=== PATIENT | male | born 1950 | race Caucasian/White ===

== ENCOUNTER 2018-01-26 10:09 | Inpatient (IN) | payer MEDICARE, OTHER ==
[~2018-01-26] VITALS: Ht 188 cm; Wt 140.7 kg
--- NOTE | ~2018-01-26 | 2DMMODE ---
[facility] [address] [place] [address] 2 D/M-MODE ECHOCARDIOGRAM Name: CONTRERAS FIERRO Room #: 210-P ADM IN M.R.#: [id number] Admission: 01/26/18 Attend Phys: Corwin Davis MD Discharge: Date of : 46 Date of Service: 01/27/18 1154 Report #: [id number] THIS REPORT FOR: //name// APPROVED REPORT Study performed: 01/27/2018 08:26:25 EXAM: Comprehensive 2D, Doppler, and color-flow Echocardiogram Patient Location: Bedside Room #: 210 Status: routine BSA: 2.53 HR: 285 bpm BP: 122/72 mmHg Rhythm: Atrial Fibrillation Other Information Study Quality: Technically Limited Indications COPD Atrial Fibrillation Chest Pain Hx. CVA, HTN, stroke Echo Enhancing Agent Indication: Hx 2D Dimensions RVDd: 40.43 mm IVSd: 18.38 (7-11mm) LVOT Diam: 26.01 (18-24mm) LVDd: 41.67 mm PWd: 17.76 (7-11mm) Ascending Ao: 37.64 (22-36mm) LVDs: 30.99 (25-40mm) Aortic Root: 41.25 mm IVC: 28.00 mm Volumes Left Atrial Volume (Systole) Single Plane 4CH: 88.30 mL Single Plane 2CH: 42.39 mL Aortic Valve AoV Peak Bronson.: 1.79 m/s AO Peak Gr.: 12.86 mmHg LVOT Max P.20 mmHg LVOT Max V: 1.02 m/s HANNAH Vmax: 3.03 cm2 [facility] [address] [place] [address] 2 D/M-MODE ECHOCARDIOGRAM Name: CONTRERAS FIERRO Room #: 210-P ADM IN .R.#: [id number] Admission: 01/26/18 Attend Phys: Corwin Davis MD Discharge: Date of : 46 Date of Service: 01/27/18 1154 Report #: [id number] Mitral Valve E/A Ratio: 1.0 MV Decel. Time: 796.08 ms MV E Max Bronson.: 0.85 m/s MV A Bronson.: 0.84 m/s MV PHT: 230.86 ms IVRT: 77.85 ms Pulmonary Valve PV Peak Bronson.: 1.00 m/s PV Peak Gr.: 3.99 mmHg Tricuspid Valve TR Peak Bronson.: 2.41 m/s RAP Estimate: 10.00 mmHg TR Peak Gr.: 23.15 mmHg PA Pressure: 33.00 mmHg Left Ventricle The left ventricle is normal size. Moderate to severe concentric left ventricular hypertrophy. The left ventricular systolic function is normal. The left ventricular ejection fraction is within the normal range. LVEF is 55-60%. This study is not technically sufficient to allow evaluation of the LV diastolic function due to atrial fibrillation. Right Ventricle The right ventricle is normal size. The right ventricular systolic function is normal. Atria The left atrium size is normal. The right atrium size is normal. Aortic Valve Aortic valve is calcified. No aortic regurgitation is seen. There is no aortic valvular stenosis. Mitral Valve The mitral valve is normal in structure. Trace mitral regurgitation. No evidence of mitral valve stenosis. Tricuspid Valve The tricuspid valve is normal in structure. Mild to moderate tricuspid regurgitation. Estimated PAP of 33 mmHg. Pulmonic Valve [facility] [address] [place] [address] 2 D/M-MODE ECHOCARDIOGRAM Name: CONTRERAS FIERRO Room #: 210-P ADM IN M.R.#: [id number] Admission: 01/26/18 Attend Phys: Corwin Davis MD Discharge: Date of : 46 Date of Service: 01/27/18 1154 Report #: [id number] Pulmonic valve is not well visualized. Trace pulmonic regurgitation. Great Vessels Aortic root is dilated. IVC is dilated and collapses >50% with inspiration. <Conclusion> The left ventricle is normal size. LVEF is 55-60%. Aortic valve is calcified. The tricuspid valve is normal in structure. Mild to moderate tricuspid regurgitation. Estimated PAP of 33 mmHg. The mitral valve is normal in structure. Trace mitral regurgitation. Pulmonic valve is not well visualized. Trace pulmonic regurgitation. <ELECTRONICALLY SIGNED> By: Filipe Deluca MD 01/27/18 1154 1154 1154 Filipe Deluca MD /INF
--- NOTE | ~2018-01-26 | EKG ---
[address] [address] ELECTROCARDIOGRAM REPORT Name: CONTRERAS FIERRO Room #: 210-P ADM IN M.R.#: [id number] Admission: 01/26/18 Attend Phys: Corwin Davis MD Discharge: Date of : 46 Report #: [id number] THIS REPORT FOR: //name// [facility] Test Date: 2018-01-27 Test Time: 08:08:38 Pat Name: CONTRERAS FIERRO Department: Room: 210 P Gender: M Engineer/Conductor: EJ : 1950 Requested By: Corwin Davis Order Number: [id number] MD: Michael Cabello Measurements Intervals [place] Rate: 84 P: [place]: QRS: 31 QRSD: 104 T: 55 QT: 405 QTc: 479 Interpretive Statements Atrial fibrillation Nonspecific T wave abnormality No previous ECG available for comparison Electronically Signed On 01-27-2018 9:03:48 CDT by Michael Cabello [email or web address] <ELECTRONICALLY SIGNED> By: Michael Cabello MD, [facility] 01/27/18 0903 [id number] [id number] Michael Cabello MD, FAC /EPI
--- NOTE | ~2018-01-26 | EKG ---
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
[2018-01-26 10:11] VITALS: BP 122/88
[2018-01-26 11:11] LABS: ABSOLUTE NEUTROPHILS 5.9 thou/uL (1.4-8.2); BASOPHILS 0.5 % (0.0-2.0); EOSINOPHILS 1.4 % (0.0-3.0); HEMATOCRIT 34.8 % (42.0-52.0); HEMOGLOBIN 11.3 gm/dL (14.0-18.0); LYMPHOCYTES 13.9 % (24.0-44.0); MCH 26.8 pg (26.0-34.0); MCHC 32.6 g/dL (28.0-37.0); MCV 82.2 fL (80.0-100.0); PLATELET COUNT 215 thou/uL (150-400); POLYS 75.2 % (36.0-66.0); RBC 4.23 mil/uL (4.50-6.00); RDW 18.1 % (10.5-14.5); WBC 7.9 thou/uL (4.0-11.0)
[2018-01-26 11:18] LABS: ANION GAP 6 mmol/L (7-16); BUN 13 mg/dL (7-18); CALCIUM 9.1 mg/dL (8.5-10.1); CHLORIDE 104 mmol/L (98-107); CO2 30 mmol/L (21-32); CREATININE 0.7 mg/dL (0.7-1.3); GLUCOSE 128 mg/dL (74-106); POTASSIUM 3.5 mmol/L (3.5-5.1); SODIUM 140 mmol/L (136-145)
[2018-01-26 11:27] LABS: TROPONIN-I <0.06 ng/mL (<0.06)
[2018-01-26 12:13] LABS: ANISOCYTOSIS 2+; OVALOCYTES 1+; POLYCHROMASIA OCCASIONAL
[2018-01-26] MEDS ORDERED: LASIX 40 MG TAB40 M2 PO (12:36)
[2018-01-26] MEDS ORDERED: ASPIR-LOW81 MG PO (12:40)
[2018-01-26] MEDS ORDERED: ATORVASTATIN CA40 MG PO (12:40)
[2018-01-26] MEDS ORDERED: SYMBICORT160 MCG/4. INH (12:41)
[2018-01-26] MEDS ORDERED: DIGOXIN250 MCG PO (12:41)
[2018-01-26] MEDS ORDERED: NEURONTIN600 MG PO (12:42)
[2018-01-26] MEDS ORDERED: FOLIC ACID1 MG PO (12:42)
[2018-01-26] MEDS ORDERED: CONSTULOSE10 GM/15 M PO (12:43)
[2018-01-26] MEDS ORDERED: TOPROL XL100 MG PO (12:43)
[2018-01-26] MEDS ORDERED: VITAMIN B-1100 M1 PO (12:44)
[2018-01-26] MEDS ORDERED: PROTONIX40 M1 PO (12:44)
[2018-01-26] MEDS ORDERED: NICOTINE PATCH1 EAC2 TOP (12:45)
[2018-01-26] MEDS ORDERED: ALBUTEROL2.5 MG/0.1 INH (12:47)
[2018-01-26 12:48] VITALS: BP 118/63
[2018-01-26 13:07] VITALS: BP 118/63
[2018-01-26 19:43] VITALS: BP 102/61
[2018-01-26 21:33] LABS: SGOT 36 U/L (15-37); SGPT 51 U/L (30-65)
[2018-01-27 00:01] VITALS: BP 100/51
[2018-01-27 04:20] VITALS: BP 122/72
[2018-01-27 07:31] LABS: HEMATOCRIT 32.6 % (42.0-52.0); HEMOGLOBIN 10.8 gm/dL (14.0-18.0); MCH 27.1 pg (26.0-34.0); MCHC 33.1 g/dL (28.0-37.0); MCV 81.9 fL (80.0-100.0); RBC 3.98 mil/uL (4.50-6.00); RDW 18.8 % (10.5-14.5); WBC 7.4 thou/uL (4.0-11.0)
[2018-01-27 07:55] LABS: ANION GAP 8 mmol/L (7-16); BUN 19 mg/dL (7-18); CALCIUM 8.7 mg/dL (8.5-10.1); CHLORIDE 106 mmol/L (98-107); CO2 28 mmol/L (21-32); CREATININE 0.8 mg/dL (0.7-1.3); GLUCOSE 100 mg/dL (74-106); POTASSIUM 3.8 mmol/L (3.5-5.1); SODIUM 142 mmol/L (136-145); TROPONIN-I <0.06 ng/mL (<0.06)
[2018-01-27 11:43] VITALS: BP 109/52
[2018-01-27 16:55] VITALS: BP 92/55
[2018-01-27 19:34] VITALS: BP 108/61
[2018-01-27 21:37] LABS: URINE BILIRUBIN NEGATIVE (Negative); URINE BLOOD NEGATIVE (Negative); URINE CLARITY CLEAR; URINE COLOR YELLOW; URINE GLUCOSE-RANDOM* NEGATIVE (Negative); URINE KETONES NEGATIVE (Negative); URINE LEUKOCYTES-REFLEX NEGATIVE (Negative); URINE NITRITE-REFLEX NEGATIVE (Negative); URINE PROTEIN (DIPSTICK) NEGATIVE (Negative); URINE SPECIFIC GRAVITY 1.015 (1.005-1.035)
[2018-01-28 03:51] VITALS: BP 119/66
[2018-01-28 07:54] VITALS: BP 126/74
[2018-01-28 08:23] LABS: INR 1.1; PROTIME 11.4 Seconds (9.3-11.4)
[2018-01-28 08:27] LABS: CALCIUM 8.6 mg/dL (8.5-10.1); CREATININE 0.7 mg/dL (0.7-1.3); MAGNESIUM 1.7 mg/dL (1.8-2.4); POTASSIUM 4.5 mmol/L (3.5-5.1); TOTAL BILIRUBIN 0.4 mg/dL (<0.1-1.0)
[2018-01-28 11:40] VITALS: BP 103/53
[2018-01-28 19:58] VITALS: BP 132/74
[2018-01-29 03:54] LABS: MCH 25.9 pg (26.0-34.0); MCHC 31.4 g/dL (28.0-37.0); MCV 82.3 fL (80.0-100.0); RBC 4.25 mil/uL (4.50-6.00); RDW 17.9 % (10.5-14.5); WBC 6.3 thou/uL (4.0-11.0)
[2018-01-29 04:00] LABS: CALCIUM 8.6 mg/dL (8.5-10.1); CREATININE 0.7 mg/dL (0.7-1.3); MAGNESIUM 1.7 mg/dL (1.8-2.4); POTASSIUM 4.2 mmol/L (3.5-5.1); TOTAL BILIRUBIN 0.4 mg/dL (<0.1-1.0); TOTAL PROTEIN 8.3 g/dL (6.4-8.2)
[2018-01-29 04:45] VITALS: BP 120/68
[2018-01-29 07:35] VITALS: BP 113/61
[2018-01-29 10:51] VITALS: BP 110/62
[2018-01-29 13:57] VITALS: BP 111/74
[2018-01-29 19:44] VITALS: BP 107/58
[2018-01-30 03:07] VITALS: BP 120/77
[2018-01-30 08:39] VITALS: BP 122/80
[2018-01-30 12:00] VITALS: BP 119/56
[2018-01-30 15:42] VITALS: BP 152/84
[2018-01-30 20:30] VITALS: BP 126/82
[2018-01-31 04:45] LABS: HEMATOCRIT 33.4 % (42.0-52.0); HEMOGLOBIN 10.9 gm/dL (14.0-18.0); MCH 27.1 pg (26.0-34.0); MCHC 32.5 g/dL (28.0-37.0); MCV 83.3 fL (80.0-100.0); RBC 4.02 mil/uL (4.50-6.00); RDW 18.4 % (10.5-14.5); WBC 6.2 thou/uL (4.0-11.0)
[2018-01-31 04:55] LABS: CALCIUM 8.4 mg/dL (8.5-10.1); CREATININE 0.7 mg/dL (0.7-1.3); MAGNESIUM 1.8 mg/dL (1.8-2.4); POTASSIUM 4.1 mmol/L (3.5-5.1)
[2018-01-31 05:50] VITALS: BP 106/71
[2018-01-31 09:12] VITALS: BP 107/55
[2018-01-31] MEDS ORDERED: LACTULOSE20 GM/30 M PO (10:23)
[2018-01-31] MEDS ORDERED: MAGNESIUM400 MG PO (10:23)
[2018-01-31] MEDS ORDERED: ALDACTONE50 MG PO (10:23)
[2018-01-31] MEDS ORDERED: METOPROLOL SUCC50 MG PO (10:23)
[2018-01-31 13:30] VITALS: BP 103/63
[2018-01-31 18:01] VITALS: BP 103/63
== END 2018-01-31 18:01 | DRG 308 ==
LOC: ER 10:09 → EROBS 11:59 → 2N 11:59
PROVIDERS: Emergency Medicine; Hospitalist; Internal Medicine; Nurse Practitioner Acute Care; Nurse Practitioner Family
DX: I48.91 Unspecified atrial fibrillation (principal); I50.33 Acute on chronic diastolic (congestive) heart failure; K76.6 Portal hypertension; E46 Unspecified protein-calorie malnutrition; J98.11 Atelectasis; I11.0 Hypertensive heart disease with heart failure; K21.9 Gastro-esophageal reflux disease without esophagitis; J44.9 Chronic obstructive pulmonary disease, unspecified; E83.42 Hypomagnesemia; K72.90 Hepatic failure, unspecified without coma; K74.60 Unspecified cirrhosis of liver; E11.42 Type 2 diabetes mellitus with diabetic polyneuropathy; I42.9 Cardiomyopathy, unspecified; F10.10 Alcohol abuse, uncomplicated; F17.210 Nicotine dependence, cigarettes, uncomplicated; Z86.73 Personal history of transient ischemic attack (TIA), and cerebral infarction without residual deficits; Z59.0 Homelessness; Z79.82 Long term (current) use of aspirin; Z79.899 Other long term (current) drug therapy; Z90.49 Acquired absence of other specified parts of digestive tract; Z71.6 Tobacco abuse counseling; Z71.41 Alcohol abuse counseling and surveillance of alcoholic; Z68.39 Body mass index [BMI] 39.0-39.9, adult; Z88.8 Allergy status to other drugs, medicaments and biological substances
CPT/HCPCS: 10081